=== PATIENT | male | born 1985 | race Two or more races ===

== ENCOUNTER → 2024-04-21 | Outpatient (CLI) | payer OTHER, SELFPAY ==
--- NOTE | 2024-04-21 | XR_ITS ---
Examination: Fingers, left 3 views fourth digit 3 views Technique: AP, oblique, lateral views left hand fourth digit 3 views. Exam date and time: April 21, 2024 1326 hours Comparison March 12, 2024 INDICATIONS: Injury to the hand with fractures left hip distal phalanx fourth digit March 12, 2024 FINDINGS: There is demineralization at the fracture site distal aspect distal phalanx fourth digit Abundant callus is not identified IMPRESSION: Suggest continued follow-up to document more complete healing fracture distal phalanx fourth digit
== END | disposition home or self-care (01) ==
PROVIDERS: PCP Family Medicine; Referring Provider Family Medicine; Visit Provider Family Medicine
DX: S62.605D Fracture of unspecified phalanx of left ring finger, subsequent encounter for fracture with routine healing (principal); X58.XXXD Exposure to other specified factors, subsequent encounter
CPT/HCPCS: 73140

== ENCOUNTER → 2024-05-14 | Outpatient (CLI) | payer OTHER, SELFPAY ==
--- NOTE | 2024-05-14 13:45 | XR_ITS ---
Examination: Fingers, left hand fourth digit 3 views Technique: AP, oblique, lateral views left hand fourth digit 3 views. Exam date and time: May 14, 2024 1357 hours INDICATIONS: Acute fracture fourth digit left hand March 12, 2024 FINDINGS: Partial healing fracture ungual tuft tip distal phalanx fourth digit Stable and satisfactory alignment IMPRESSION: Stable alignment and partial healing fracture distal phalanx fourth digit
== END | disposition home or self-care (01) ==
LOC: CDIM 13:33
PROVIDERS: Referring Provider Physician Assistant; Visit Provider Physician Assistant
DX: S62.605D Fracture of unspecified phalanx of left ring finger, subsequent encounter for fracture with routine healing (principal); X58.XXXD Exposure to other specified factors, subsequent encounter
CPT/HCPCS: 73140

== ENCOUNTER → 2024-08-16 | Outpatient (CLI) | payer OTHER, SELFPAY ==
--- NOTE | 2024-08-16 15:02 | XR_ITS ---
Examination: Fingers, left hand fourth digit 3 views 3 views Technique: AP, oblique, lateral views left hand fourth digit 3 views. Exam date and time: August 16, 2024 1803 hrs. Indications: Acute fracture fourth digit left hand March 12, 2024 Findings: Significant healing fractures ungual tuft tip distal phalanx fourth digit Stable alignment Impression: Significant healing fractures ungual tuft tip distal phalanx fourth digit
== END | disposition home or self-care (01) ==
PROVIDERS: PCP Family Medicine; Referring Provider Family Medicine; Visit Provider Family Medicine
DX: S62.605D Fracture of unspecified phalanx of left ring finger, subsequent encounter for fracture with routine healing (principal); X58.XXXD Exposure to other specified factors, subsequent encounter
CPT/HCPCS: 73140